=== PATIENT | male | born 1960 | race Caucasian/White ===

== ENCOUNTER 2019-03-13 09:53 | Day surgery (SDC) | payer OTHER ==
[2019-03-13] MEDS ORDERED: MIDAZOLAM 1 MG/ML 2 ML INJ ×2 (11:51)
[2019-03-13] MEDS ORDERED: FENTAnyl 50 MCG/ML VIAL (11:51)
== END 2019-03-13 14:22 | disposition home or self-care (01) ==
LOC: GIL 09:53
DX: Z12.11 Encounter for screening for malignant neoplasm of colon (principal); D12.4 Benign neoplasm of descending colon; K64.4 Residual hemorrhoidal skin tags
CPT/HCPCS: 45380; 88305